=== PATIENT | female | born 1940 | race Hispanic/Latino ===

== ENCOUNTER 2024-03-08 16:47 | Emergency (ER) | payer OTHER ==
[2024-03-08 17:28] LABS: #Basophils 0.03 10x3/uL (0.0-0.2); #Eosinophils 0.15 10x3/uL (0.0-0.5); #Monocytes 0.76 10x3/uL (0.0-1.1); #Neutrophils 6.48 10x3/uL (1.5-8.4); %Basophils 0.3 % (0.0-2.0); %Eosinophils 1.7 % (0.0-6.0); %Monocytes 8.5 % (0.0-10.0); %Neutrophils 72.3 % (40.0-75.0); Hematocrit 36.8 % (34.9-44.5); Hemoglobin 12.1 g/dL (12.0-15.5); Mean Corpuscular HGB CONC 32.9 g/dL (32.0-36.0); Mean Corpuscular Hemoglobin 30.8 pg (27.0-33.0); Mean Corpuscular Volume 93.6 fL (81.6-98.3); Mean Platelet Volume 9.2 fL (7.4-10.4); Platelet Count 387 10x3/uL (150-450); RBC Distribution Width 13.4 % (11.5-14.5); Red Blood Cell (RBC) Count 3.93 10x6/uL (3.90-5.03)
[2024-03-08] MEDS ORDERED: niCARdipine 25 MG/10 ML SDV ONE (17:29)
[2024-03-08] MEDS ORDERED: Ondansetron PF 4 MG/2 ML Vial ONE (17:32)
[2024-03-08] MEDS ORDERED: [UNRECOGNIZED DRUG - OTHER] IV ONE (17:45)
[2024-03-08] MEDS ORDERED: PROTHROMBIN COMPLEX CONCENTRATE IV ONE (17:45)
[2024-03-08 18:13] LABS: Troponin I Less than 0.010 ng/mL (< 0.028)
[2024-03-08 18:19] LABS: Prothrombin Time Greater than 90.0 sec (9.5-12.1)
[2024-03-08 18:37] LABS: ALT (SGPT) 15 U/L (8-55); AST (SGOT) 22 U/L (5-34); Albumin 4.4 g/dL (3.4-4.8); Alkaline Phosphatase 120 U/L (40-110); Anion Gap 19 mmol/L (10-20); BUN (Urea Nitrogen) 43 mg/dL (9.8-20.1); Bilirubin, Total 0.4 mg/dL (0.2-1.2); Calc. Creatinine Clearance 0 mL/min (70-130); Calcium 9.2 mg/dL (7.8-10.44); Carbon Dioxide 19 mmol/L (23-31); Chloride 102 mmol/L (98-107); Estimated GFR 36; Globulin 3.1 g/dL (2.4-3.5); Glucose 172 mg/dL (83-110); Lipase 98 U/L (8-78); Magnesium 2.1 mg/dL (1.6-2.6); Potassium 3.6 mmol/L (3.5-5.1); Protein, Total 7.5 g/dL (5.8-8.1); Sodium 136 mmol/L (136-145)
== END 2024-03-08 17:50 | disposition short-term general hospital (02) ==
LOC: CSHERS 16:47
DX: I61.9 Nontraumatic intracerebral hemorrhage, unspecified (principal); Z79.82 Long term (current) use of aspirin; Z79.899 Other long term (current) drug therapy
CPT/HCPCS: 70450; 71045; 80053; 83690; 83735; 84443; 84484; 85025; 85610; 85730; 93005; 93010; 96374; J2405; J7168